=== PATIENT | female | born 1960 | race Caucasian/White ===

== ENCOUNTER 2019-11-30 20:42 | Emergency (ER) | payer BC ==
--- NOTE | 2019-11-30 21:18 | TELE ---
HPI Do you have fever,cough or shortness of breath?: No - General Reason For Visit: COVID TESTING History Source: Patient Exam Limitations: No Limitations - History of Present Illness 11/30/19 21:09 HISTORY OF PRESENT ILLNESS: 58-year-old woman past medical history of psoriatic arthritis presents for virtual urgent care visit due to potential COVID exposure. Patient is concerned having close proximity to many people who are p ositive for foss virus. She is asymptomatic at this time and does not want testing but has multiple questions regarding COVID-19. No recent travel or sick contacts. PAST MEDICAL HISTORY: Psoriatic arthritis SURGICAL HISTORY: Denies ALLERGIES: No known drug allergies REVIEW OF SYSTEMS General/Constitutional: Denies fever or chills. Denies weakness, weight change. HEENT: Denies change in vision. Denies ear pain or discharge. Denies sore throat. Cardiovascular: Denies chest pain or shortness of breath. Respiratory: Denies cough, wheezing, or hemoptysis. Gastrointestinal: Denies nausea, vomiting, diarrhea or constipation. Denies rectal bleeding. Genitourinary: Denies dysuria, frequency, or change in urination. Musculoskeletal: Denies joint or muscle swelling or pain. Denies neck or back pain. Skin and breasts: Denies rash or easy bruising. Neurologic: Denies headache, vertigo, loss of consciousness, or loss of sensation. Psychiatric: Denies depression or anxiety. Endocrine: Denies increased thirst. Denies abnormal weight change. Hematologic/Lymphatic: Denies anemia, easy bleeding, or history of blood clots. Allergic/Immunologic: Denies hives or skin allergy. Denies latex allergy. PHYSICAL EXAM General Appearance: Well-appearing, appropriately dressed. No apparent distress, no intoxication. HEENT: Normal ENT inspection, mucous membranes pink. No scleral icterus. Neck: Supple. Trachea midline. No tenderness, rigidity, carotid bruit, stridor, lymphadenopathy, or thyromegaly. Respiratory/Chest: No shortness of breath, respiratory distress, accessory muscle use. Speaking in full sentences. Integumentary: Appropriate color, dry, warm. No cyanosis, erythema, jaundice or rash - Medical Decision Making 11/30/19 21:18 A/P: 58-year-old woman with telehealth visit for COVID-19 counseling Physical exam is unremarkable Extensive COVID counseling provided to the patient Discharge Discharge Diagnosis at time of Disposition: Counseled about COVID-19 virus infection - Referrals - Patient Instructions - Discharge Disposition: HOME Condition at time of Disposition: Stable
== END 2019-11-30 21:36 | disposition home or self-care (01) ==
LOC: JVIRT 20:42
DX: Z20.828 Contact with and (suspected) exposure to other viral communicable diseases (principal)
CPT/HCPCS: Q3014-GT